=== PATIENT | female | born 1975 | race Caucasian/White ===

== ENCOUNTER → 2025-01-01 15:05 | Outpatient (REF) | payer OTHER, SELFPAY | LOC: RAD 15:05 | PROVIDERS: ATTENDING PHYSICIAN Physician Assistant Medical | DX: I86.8 Varicose veins of other specified sites (principal) | CPT/HCPCS: 93970 ==

== ENCOUNTER → 2025-01-25 13:01 | Outpatient (REF) | payer OTHER, SELFPAY | LOC: RAD 13:01 | PROVIDERS: ATTENDING PHYSICIAN Physician Assistant Medical | DX: M79.605 Pain in left leg (principal) | CPT/HCPCS: 93971 ==

== ENCOUNTER 2025-05-11 12:22 | Emergency (ER) | payer OTHER, SELFPAY ==
[2025-05-11 12:25] VITALS: BP 127/85
--- NOTE | 2025-05-11 15:32 | ED.GENMED ---
History of Present Illness
General
Chief Complaint: Abdominal Symptoms
Source: patient
Exam Limitations: none
Time Seen by Provider: 05/11/25 15:04
Nursing documentation reviewed up to this point in time: agreed with
History of Present Illness
History of Present Illness:
Patient to ED with complaint of RLQ abdominal pain. She reports that she got her period on Saturday, normal. She states soon after she developed generalized abdominal pain and bloating. Pain has now migrated to RLQ. Denies fever/chill, n/v.
+diarrhea. Brought self to ED for eval
Past History
Past History
ED Past Medical History: Valvular disease (Mitral valve prolapse with moderate mitral valve regurgitation), Other (Sinusitis) and Other (Uterine fibroid)
ED Past Surgical History: Other (Recent umbilical hernia repair, inguinal hernia repair as a child)
Social History
Tobacco: Smoker
Alcohol: Occasional
Personal:
Living: with family
Family History
Family History: Negative Diabetes, Hypertension, Early CAD, Asthma or Cancer
Review of Systems
Review of Systems
Allergies reviewed?: Yes
All Other Systems: ROS reviewed and negative except as documented in HPI and ROS
Constitutional: Reports no symptoms
EENT: Reports no symptoms
Respiratory: Reports no symptoms
Cardiac: Reports no symptoms
ABD/GI: Reports abdominal pain (RLQ abdominal pain) and diarrhea
: Reports no symptoms
Musculoskeletal: Reports no symptoms
Skin: Reports no symptoms
Neurological: Reports no symptoms
Psychiatric: Reports no symptoms
Phy Exam
General Physical Exam
General Presentation: mild distress
General age: appears stated age
General Skin: warm and dry
General Habitus: normal
Gastrointestinal Exam
Gastrointestinal Exam: normal bowel sounds, soft, no organomegaly, no pulsatile mass and non distended
Palpation: left upper quadrant: Minimal tenderness, left lower quadrant: Minimal tenderness, right upper quadrant: Mild tenderness and right lower quadrant: Moderate tenderness
Musculoskeletal Exam
Musculoskeletal Exam: full ROM
Skin Exam
Skin Exam: normal color, warm/dry and no rash
Psychiatric Exam
Psychiatric Exam: normal mood/affect
Course
Orders/Labs/Results
Orders:
Orders
05/11/25 15:31
CT Abd/pel W Iv And Oral Contr Urgent
Comment:
Reason For Exam: RLQ pain
Iohexol [Omnipaque] See Protocol PO NOW STA
Pelvis (Non Obstetric) US [US Pelvis Only (non-obstetric)] Urgent
Comment:
Reason For Exam: RLQ pain
05/11/25 15:39
Complete Blood Count/With Diff Urgent
Comprehensive Metabolic Panel Urgent
HCG, Serum Qualitative Screen Urgent
Lipase Urgent
05/11/25 15:46
Urinalysis Reflex To Culture Urgent
Date Specimen was Collected: 05/11/25
Time Specimen was Collected: 15:40
05/11/25 16:23
Add On- LAB Urgent
Tests Added?: HCG serum qualitative
05/11/25 17:18
Ondansetron Injectable [Zofran] 4 mg .ROUTE .STK-MED ONE
05/11/25 17:20
Ondansetron Injectable [Zofran] 4 mg IV NOW STA
Abnormal Lab Results
05/11/25
15:39
Hgb 11.5 L g/dL
(12.0-16.0)
Hct 35.6 L %
(37.0-47.0)
MCHC 32.3 L g/dL
(33.0-37.0)
RDW 15.7 H %
(11.5-14.5)
MPV 12.1 H fL
(7.4-10.4)
Monocytes % 10.1 H %
(1.7-9.3)
05/11/25 15:39
05/11/25 15:39
Vital Signs
Initial and Last Documented VS:
Initial Vital Signs
Temp Pulse Resp BP Pulse Ox
98.1 F 110 18 127/85 99
05/11/25 12:25 05/11/25 12:25 05/11/25 12:25 05/11/25 12:25 05/11/25 12:25
Last Documented Vital Signs
Temp Pulse Resp BP Pulse Ox
98.1 F 85 18 123/73 100
05/11/25 12:25 05/11/25 19:30 05/11/25 19:30 05/11/25 19:30 05/11/25 19:30
*Radiology
Radiology exam reviewed: radiology read reviewed
*Pulse Oximetry
SaO2: 99
Oxygen Mode of Delivery: Room air
Patient hypoxic: no
*Critical Care Note
Total Time (30-74mins, 75-104mins- exclusive of procedures): Not Applicable
Update Note
Update Note:
Patient to ED wtih complant of abdominal bloating, RLQ pain x 3 days. VSS, she remains afebrile. Labs reviewed, no concerning findings. CT and US reports reviewed, confirm large uterine fibroids. Discussed reports with her. Will discharge home
and she will follow up with [facility]. SHe was given number for follow up and is agreeable to plan.
ED Attending Note
-
Portions of this chart may have been created with voice recognition software.� Occasional wrong word or��sound alike� substitutions may have occurred due to the inherent limitations of voice recognition software.
Discharge Plan
Departure
Patient Disposition: Home (Routine Discharge)
Date of Disposition: 05/11/25
Time of Disposition: 19:39
Patient with high blood pressure during this ER visit?: No
Condition: Good
Covid-19: Not Applicable
Discharge Problem:
Fibroid, uterine
Instructions: Uterine Fibroids (DC)
Prescriptions:
No Action
ibuprofen [Advil] 200 MG tablet
600 mg PO PRN PRN (Reason: pain)
Referrals:
Vidya Ramos PA-C [Family Provider, Family Practice]
Luz Arredondo MD [Active, Gynecology] - Call in 1-3 days for appt
Interventions
Interventions:
*Risk Screen - Suicide Last Done: 05/11/25 12:32
*Neglect/Abuse Screening Last Done: 05/11/25 12:32
*Nursing Disposition Last Done: 05/11/25 19:46
CF-Xtoitu-Igrvptihnx Assessment Last Done: 05/11/25 15:15
Discharge Date and Time
Discharge Date/Time: 05/11/25 19:46
Print Language: CYMRO
[2025-05-11] MEDS: OMNIPAQUE 50 ML PO (15:45)
[2025-05-11 15:57] LABS: Urine Character Clear (Clear)
[2025-05-11 16:04] LABS: ALT (SGPT) 15 U/L (0-35); AST (SGOT) 18 U/L (14-36); Albumin 4.2 g/dl (3.5-5.0); Alkaline Phosphatase 55 U/L (38-126); Blood Urea Nitrogen 8 mg/dl (7-17); Calcium 9.2 mg/dl (8.4-10.2); Carbon Dioxide 27 mmol/L (22-30); Chloride 106 mmol/L (98-107); Glucose 91 mg/dl (70-99); Lipase 104 U/L (23-300); Potassium 4.0 mmol/L (3.5-5.1); Sodium 139 mmol/L (135-145); Total Protein 6.6 g/dl (6.3-8.2); eGFR > 60.00
[2025-05-11 16:34] LABS: Hematocrit 35.6 % (37.0-47.0); Hemoglobin 11.5 g/dL (12.0-16.0); Mean Corp Hgb Conc. 32.3 g/dL (33.0-37.0); Mean Corpuscular Volume 83.6 fL (81.0-99.0); Nucleated Red Blood Cells % 0 %; Platelet Count 211 10^3/uL (130-400); Red Cell Dist. Width 15.7 % (11.5-14.5)
[2025-05-11 16:54] LABS: HCG, Serum Qualitative Screen Negative
[2025-05-11] MEDS: ZOFRAN 4 MG IV (17:20)
[2025-05-11 19:30] VITALS: BP 123/73
== END 2025-05-11 19:46 | disposition home or self-care (01) ==
LOC: EMR 12:22
PROVIDERS: Nurse Practitioner; EMERGENCY PHYSICIAN Emergency Medicine; FAMILY PHYSICIAN Physician Assistant Medical
DX: D25.9 Leiomyoma of uterus, unspecified (principal); F17.200 Nicotine dependence, unspecified, uncomplicated
CPT/HCPCS: 96374; 99284; 74177; 76856; 80053; 81003; 83690; 84703; 85025; Q9967

== ENCOUNTER → 2025-05-18 07:52 | Outpatient (REF) | payer OTHER, SELFPAY | LOC: HWWDC 07:52 | PROVIDERS: ATTENDING PHYSICIAN Nurse Practitioner Women's Health; FAMILY PHYSICIAN Physician Assistant Medical; REFERRING PHYSICIAN Obstetrics & Gynecology | DX: Z12.31 Encounter for screening mammogram for malignant neoplasm of breast (principal) | CPT/HCPCS: 77063; 77067 ==

== ENCOUNTER → 2025-05-27 17:38 | Outpatient (REF) | payer OTHER, SELFPAY | LOC: MRI 17:38 | PROVIDERS: ATTENDING PHYSICIAN Physician Assistant Medical | DX: K76.9 Liver disease, unspecified (principal) | CPT/HCPCS: 74183; A9575 ==

== ENCOUNTER → 2025-06-01 08:31 | Outpatient (REF) | payer OTHER, SELFPAY | LOC: RCS 08:31 | PROVIDERS: ATTENDING PHYSICIAN Internal Medicine Cardiovascular Disease; FAMILY PHYSICIAN Physician Assistant Medical | DX: R06.09 Other forms of dyspnea (principal) | CPT/HCPCS: 93306; 93356 ==